=== PATIENT | male | born 1985 | race Caucasian/White ===

== ENCOUNTER 2018-11-23 19:18 | Outpatient (CLI) | payer OTHER ==
--- NOTE | 2018-11-24 00:10 | Ultrasound Report ---
Reason: UNSPECIFIED ABDOMINAL PAIN Procedure Date: 11/23/2018 Accession Number: [id number] / [id number] Procedure: US - Abdomen Complete CPT Code: FULL RESULT: EXAM: ABDOMEN ULTRASOUND EXAM DATE: 11/23/2018 09:50 PM. CLINICAL HISTORY: UNSPECIFIED ABDOMINAL PAIN. COMPARISON: None. TECHNIQUE: Real-time scanning was performed with static images obtained. FINDINGS: Liver: Liver is echogenic and heterogeneous. Liver measures 15.4 cm. Main portal vein flow: Hepatopetal. Gallbladder: Partially contracted gallbladder. No gallstones, wall thickening, or sonographic Sebastian's sign. Bladder wall measures 2.2 mm. Biliary System: Common bile duct measures 3.5 mm. No intrahepatic or extrahepatic ductal dilatation. Pancreas: Visualized portion is unremarkable. Kidneys: Right: 11.0 cm longitudinally, volume 230 cc. Normal. No contour-deforming mass, stones, or hydronephrosis. Left: 11.7 cm longitudinally, volume 267 cc. Normal. No contour-deforming mass, stones, or hydronephrosis. Spleen: 11.3 cm in length with volume 185 cc. Normal in size and echotexture. Aorta and Inferior Vena Cava: Unremarkable as visualized. IMPRESSION: Echogenic liver suggestive of fatty infiltration. Otherwise unremarkable abdominal ultrasound. RADIA
== END 2018-11-23 19:19 | disposition home or self-care (01) ==
LOC: DI 19:18
PROVIDERS: ATTEND Internal Medicine
DX: R10.9 Unspecified abdominal pain (principal)
CPT/HCPCS: 76700

== ENCOUNTER 2019-03-06 17:22 | Emergency (ER) | payer OTHER, MEDICAID ==
--- NOTE | 2019-03-06 17:46 | ED Physician Documentation ---
PD HPI LOWER EXT INJURY - Stated complaint Stated Complaint: LUMP IN RT LEG - Chief complaint Chief Complaint: Ext Problem - History obtained from History obtained from: Patient - History of Present Illness PD HPI LOW EXT INJURY LOCATION: Right, Lower leg, Ankle Type of injury: Other (There is no apparent injury. 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 He was not aware of any local injury but noticed some pain around the ankle a few days ago on the right leg. It was around the side of the ankle and back by the Achilles. He is now noticing pain towards the upper part of the calf in the muscle. There is no swelling or edema of the lower leg. There is family history of blood clots so he is concerned about that.). No: Fall, Twist, Blunt / blow Timing - onset: How many days ago (few days of pain ankle and now up to upper calf.) Timing - duration: Days Timing - details: Gradual onset, Still present Improved by: Rest Worsened by: Palpating, Other (walking) Associated symptoms: No: Weakness, Numbness, Swelling Similar symptoms before: Has not had sx before Recently seen: Not recently seen Review of Systems Cardiac: denies: Chest pain / pressure Respiratory: denies: Dyspnea GI: denies: Abdominal Pain, Nausea, Vomiting Neurologic: denies: Focal weakness, Numbness PD PAST MEDICAL HISTORY - Past Medical History Cardiovascular: None Respiratory: None Neuro: None Endocrine/Autoimmune: None - Allergies Allergies/Adverse Reactions: Allergies Allergy/AdvReac Type Severity Reaction Status Date / Time No Known Drug Allergies Allergy Verified 03/06/19 17:34 PD ED PE NORMAL - Vitals Vital signs reviewed: Yes - General General: Alert and oriented X 3, Well developed/nourished - Cardiac Cardiac: RRR, No murmur - Respiratory Respiratory: Clear bilaterally - Derm Derm: Normal color, Warm and dry - Extremities Extremities: No edema, Other (The right lower leg shows very slight tenderness at the lateral portion of the Achilles tendon behind the ankle. There is also some mild tenderness along the medial aspect of the mid to upper calf with a slight bit of firmness in a linear distribution consistent with superficial phle bitis. There is no redness of the skin. The deeper aspect of the calf is without any tenderness and there is no popliteal tenderness.) - Neuro Neuro: Alert and oriented X 3, No motor deficit, No sensory deficit Results - Vitals Vitals: Vital Signs - 24 hr 03/06/19 17:34 Temperature 37.1 C Heart Rate 72 Respiratory 15 Rate Blood Pressure 129/75 O2 Saturation 98 Oxygen O2 Source Room air PD MEDICAL DECISION MAKING - ED course Complexity details: reviewed results, considered differential (He has some f indings that could be suggestive of just some Achilles tendinitis. However there is a small area on the medial calf of a slight tenderness and firmness that is consistent with superficial phlebitis locally. He does not have any edema nor deeper calf tenderness but still with a family history of clots, I think it would be prudent to get an ultrasound to evaluate the deeper vessels.), d/w patient Departure - Departure Disposition: 01 Home, Self Care Clinical Impression: Superficial thrombophlebitis Qualifiers: Superficial thrombophlebitis-Involved body area: lower extremity Laterality: right Qualified Code(s): I80.01 - Phlebitis and thrombophlebitis of superficial vessels of right lower extremity Condition: Stable Record reviewed to determine appropriate education?: Yes Instructions: ED Phlebitis Superficial Follow-Up: Nohemi Loco MD [Primary Care Provider] - Comments: Heat and warm towels to the area to help promote good blood flow. Some anti- inflammatories a couple of times a day can be helpful such as ibuprofen or naproxen 2 tablets twice a day. Recheck if not improved completely over the next week or 2. Return if you have increasing pain through the leg or if you develop swelling through the whole leg. Very infrequently would the surface clot to extend to the deeper veins and cause further symptoms.
--- NOTE | 2019-03-06 19:15 | Ultrasound Report ---
Reason: right calf tender/pain; FH of clots Procedure Date: 03/06/2019 Accession Number: [id number] / [id number] Procedure: US - Duplex Ext Veins Right CPT Code: Final Report FULL RESULT: EXAM: RIGHT LOWER EXTREMITY VENOUS ULTRASOUND EXAM DATE: 03/06/2019 06:51 PM. CLINICAL HISTORY: Right calf tender/pain; FH of clots. COMPARISON: None. TECHNIQUE: Real-time sonographic vascular imaging was performed by the senior telecommunications specialist through the lower extremity utilizing both color-flow and Doppler spectral analysis. Multiple bilingual call center representative static images were saved for review. FINDINGS: Common Femoral Vein (CFV): Normal. CFV-GSV Junction: Normal. Profunda Femoral Vein (PFV): Normal. Femoral Vein (FV) Prox: Normal. Femoral Vein (FV) Mid: Normal. Femoral Vein (FV) Dist: Normal. Popliteal Vein: Normal. Posterior Tibial Veins: Normal. Peroneal Veins: Normal. At the lesser saphenous vein from the ankle to the knee there is evidence of superficial clot. Other: None. IMPRESSION: Negative for right lower extremity DVT. Positive for superficial venous thrombosis at the lesser saphenous vein. RADIA
[2019-03-06 19:17] VITALS: BP 136/76
== END 2019-03-06 19:18 | disposition home or self-care (01) ==
LOC: ED 17:22
DX: I80.01 Phlebitis and thrombophlebitis of superficial vessels of right lower extremity (principal); Z82.49 Family history of ischemic heart disease and other diseases of the circulatory system
CPT/HCPCS: 99283; 99284

== ENCOUNTER 2019-10-31 11:27 | Outpatient (CLI) | payer OTHER, MEDICAID ==
[2019-10-31 18:59] LABS: BASOPHILS % (AUTO) 0.3 %; EOSINOPHILS # (AUTO) 0.2 10^3/uL (0.0-0.7); EOSINOPHILS % (AUTO) 2.4 %; HGB - HEMOGLOBIN 16.9 g/dL (14.0-18.0); LYMPHOCYTES # (AUTO) 2.7 10^3/uL (1.5-3.5); LYMPHOCYTES % (AUTO) 29.2 %; MEAN CORPUSCULAR HEMOGLOBIN 30.4 pg (27.0-31.0); MEAN CORPUSCULAR HGB CONC 33.5 g/dL (32.0-36.0); MEAN CORPUSCULAR VOLUME 90.8 fL (80.0-94.0); MEAN PLATELET VOLUME 8.9 fL (7.4-11.4); MONOCYTES # (AUTO) 0.9 10^3/uL (0.0-1.0); MONOCYTES % (AUTO) 9.3 %; NEUTROPHILS # (AUTO) 5.5 10^3/uL (1.5-6.6); NEUTROPHILS % (AUTO) 58.4 %; PLT - PLATELET COUNT 307 10^3/uL (130-450); RED BLOOD COUNT 5.56 10^6/uL (4.70-6.10); RED CELL DISTRIBUTION WIDTH 13.5 % (12.0-15.0); WHITE BLOOD COUNT 9.4 x10^3/uL (4.8-10.8)
[2019-10-31 19:40] LABS: ALBUMIN 4.5 g/dL (3.2-5.5); ALBUMIN/GLOBULIN RATIO 1.3 (1.0-2.2); ALKALINE PHOSPHATASE 80 IU/L (42-121); ALT ALANINE AMINOTRANSFERASE 30 IU/L (10-60); AST ASPARTATE AMINOTRANSFERASE 27 IU/L (10-42); BILIRUBIN,TOTAL 0.8 mg/dL (0.2-1.0); BUN - BLOOD UREA NITROGEN 14 mg/dL (6-20); CALCIUM 9.6 mg/dL (8.5-10.3); CARBON DIOXIDE - CO2 28 mmol/L (21-32); CHLORIDE 101 mmol/L (101-111); CHOL/HDL RATIO 5.8 (<5.0); CHOLESTEROL 213 mg/dL; CREATININE 1.1 mg/dL (0.6-1.2); GLUCOSE 97 mg/dL (70-100); HDL CHOLESTEROL 37 mg/dL; LDL CHOLESTEROL,CALCULATED 147 mg/dL; SODIUM 138 mmol/L (135-145); TOTAL PROTEIN 7.9 g/dL (6.7-8.2); VLDL CHOLESTEROL 29 mg/dL
== END 2019-10-31 23:59 | disposition home or self-care (01) ==
LOC: LAB.WCP 11:27
PROVIDERS: ATTEND Nurse Practitioner
DX: Z13.29 Encounter for screening for other suspected endocrine disorder (principal); Z13.228 Encounter for screening for other metabolic disorders; Z13.220 Encounter for screening for lipoid disorders; K76.0 Fatty (change of) liver, not elsewhere classified
CPT/HCPCS: 36415; 80053; 80061; 83721; 84443; 85025

== ENCOUNTER 2020-10-11 10:35 | Outpatient (CLI) | payer OTHER, MEDICAID ==
--- NOTE | 2020-10-11 11:41 | XRAY Report ---
PROCEDURE: Chest 2 View X-Ray INDICATIONS: RESPIRATORY INFECTION TECHNIQUE: 2 view(s) of the chest. COMPARISON: None. FINDINGS: Surgical changes and devices: None. Lungs and pleura: No pleural effusions or pneumothorax. Lungs are clear. Mediastinum: Mediastinal contours are normal. Heart size is normal. Bones and chest wall: No suspicious bony abnormalities. Soft tissues appear unremarkable. IMPRESSION: Normal chest plain films, without infiltrates. Reviewed by: Nikita Estes MD on 10/11/2020 10:39 AM STEVE Approved by: Nikita Estes MD on 10/11/2020 10:39 AM STEVE Station ID: [id number]
== END 2020-10-11 10:36 | disposition home or self-care (01) ==
LOC: DI.N 10:35
PROVIDERS: ATTEND Nurse Practitioner
DX: J06.9 Acute upper respiratory infection, unspecified (principal); Z20.822 Contact with and (suspected) exposure to COVID-19

== ENCOUNTER 2022-05-01 13:30 | Emergency (ER) | payer MEDICAID, OTHER ==
[2022-05-01] MEDS ORDERED: BUFFERED LIDOCAINE 10 ML SYRINGE SUBQ STA (14:26)
[2022-05-01] MEDS ORDERED: TETANUS/DIPHTHERIA/PERTUSSIS 0.5 ML SYRINGE IM ONE (14:27)
--- NOTE | 2022-05-01 14:34 | ED Physician Documentation ---
History of Present Illness - Stated complaint Stated Complaint: R HAND CUT INJ - Chief complaint Chief Complaint: Laceration - History obtained from History obtained from: Patient - History of Present Illness Timing: Today Pain level max: 3 Pain level now: 2 - Additonal information Additional information: Patient is a 37-year-old male who presents to the emergency department after sustaining a laceration to the dorsum of the right hand on a piece of sheet metal earlier today. Unknown last tetanus shot. Patient is right-handed. Better with pressure, nothing makes it worse. No numbness or tingling. Review of Systems Constitutional: denies: Fever, Chills PD PAST MEDICAL HISTORY - Past Medical History Past Medical History: Yes Cardiovascular: None Respiratory: None Neuro: None Endocrine/Autoimmune: None GI: None : None HEENT: None Psych: None Musculoskeletal: None Derm: None - Past Surgical History Past Surgical History: No - Present Medications Home Medications: Ambulatory Orders Medication Instructions Recorded Confirmed No Known Home Medications 05/01/22 05/01/22 - Allergies Allergies/Adverse Reactions: Allergies Allergy/AdvReac Type Severity Reaction Status Date / Time No Known Drug Allergies Allergy Verified 05/01/22 13:38 - Social History Does the pt smoke?: Yes Smoking Status: Current every day smoker Does the pt drink ETOH?: No Does the pt have substance abuse?: Yes Substance Use and Type: Marijuana - Immunizations Immunizations are current?: No Immunizations: TDAP >10years/unknown - POLST Patient has POLST: No PD ED PE NORMAL - Vitals Vital signs reviewed: Yes - General General: Alert and oriented X 3, No acute distress - Derm Derm: Warm and dry - Extremities Extremities: Other (R hand - 2 cm laceration to the MCP joint of the third digit on the dorsum of the hand. Neurovascular intact. Subcutaneous. Tendon intact. No injury. Tendons tested against resistance.) - Neuro Neuro: Alert and oriented X 3 - Psych Psych: Normal mood, Normal affect Results - Vitals Vitals: Vital Signs - 24 hr 05/01/22 05/01/22 13:35 15:16 Temperature 36.6 C 36.9 C Heart Rate 61 62 Respiratory 16 16 Rate Blood Pressure 136/65 H 132/76 H O2 Saturation 98 99 Oxygen O2 Source Room air Procedures - Laceration (location) Right third digit Length in cm: 2 Wound type: Into subcut fat, Clean Neurovascular status: Sensory intact, Motor intact, Vascular intact Tendon involvement: Tendon intact Anesthesia: Lidocaine 1%, With bicarb Wound preparation: Irrigated copiously NS Skin layer closure: Nylon, Interrupted, Size #-0 - enter number (4) Other: Patient tolerated well, No complications, Neurovascular intact, Dressing applied, Tetanus booster given PD Medical Decision Making - ED course Complexity details: considered differential, d/w patient, d/w family ED course: Laceration repaired. Tolerated well. No tendon injury. Neurovascularly intact. Warnings of infection and instructions on wound care given at bedside. Patient and family counseled regarding signs and symptoms for which I believe and urgent re-evaluation would be necessary. Patient with good understanding of and agreement to plan and is comfortable going home at this time This document was made in part using voice recognition software. While efforts are made to proofread this document, sound alike and grammatical errors may occur. Departure - Departure Disposition: 01 Home, Self Care Clinical Impression: Finger laceration Qualifiers: Encounter type: initial encounter Finger: middle finger Damage to nail status: without damage Foreign body presence: without foreign body Laterality: right Qualified Code(s): S61.212A - Laceration without foreign body of right middle finger without damage to nail, initial encounter Condition: Good Instructions: ED Laceration Hand Follow-Up: your,doctor in 1 week [Other] Comments: Please follow-up with your doctor in approximate 10 to 14 days for suture removal. Return if you notice redness, swelling or drainage from the wound. Keep the wound clean. You were given a tetanus shot today as well. Discharge Date/Time: 05/01/22 15:16
[2022-05-01 15:17] VITALS: BP 132/76
== END 2022-05-01 15:16 | disposition home or self-care (01) ==
LOC: ED 13:30
DX: S61.212A Laceration without foreign body of right middle finger without damage to nail, initial encounter (principal); W26.8XXA Contact with other sharp object(s), not elsewhere classified, initial encounter; F17.200 Nicotine dependence, unspecified, uncomplicated
CPT/HCPCS: 12001; 90471; 99283